=== PATIENT | female | born 1945 | race African-American/Black ===

== ENCOUNTER 2016-12-15 10:50 | Emergency (ER) | payer MEDICARE, OTHER ==
[~2016-12-15 10:50] MED LIST: DIOVAN HCT 80/11 TAB PO; ZANTAC PO; ZOCOR PO; ZOLOFT PO
== END 2016-12-15 11:11 | disposition left against medical advice (07) ==
LOC: CFTX 10:50
DX: Z53.21 Procedure and treatment not carried out due to patient leaving prior to being seen by health care provider (principal)